=== PATIENT | female | born 1990 | race Caucasian/White ===

== ENCOUNTER 2020-06-19 14:32 | Outpatient (CLI) | payer OTHER, SELFPAY ==
--- NOTE | ~2020-06-19 | US_ITS ---
EXAMINATION: US OB /maternal detail DATE: 06/19/2020 16:01 INDICATION: survey TECHNIQUE: Multiple obstetric sonographic images performed. FINDINGS: No prior studies for comparison. There is a single living fetus in breech presentation. The placenta is anterior without placenta pre via. Amniotic fluid volume is normal. BENJIE measures 11.2 cm. cardiac activity and movement is noted with a heart rate of 135 beats per minute. The following anatomy was identified as normal: 4 chamber heart 3 vessel cord cord insertion kidneys urinary bladder stomach spine diaphragm ventricles cisterna magna cerebellum The following biometric data were obtained: BPD: 42mm corresponds to gestational age 18 weeks 5 days. Head circumference: 168 mm corresponds to gestational age 19 weeks 3 days. Abdominal circumference: 141 mm corresponds to gestational age 19 weeks 3 days. Femur length: 31 mm corresponds to gestational age 19 weeks 4 days. Head circumference to abdominal circumference ratio: 1.19 (normal range for expected gestational age is 1.09-1.26). Estimated weight: 295 grams +/- 44 grams using Hadlock method. IMPRESSION: 1: Single living intrauterine with an estimated gestational age of 19weeks 2days by current ultrasound measurements, with an EDC of 11/11/2020 in breech presentation. 2. Normal survey. Reviewed, dictated and finalized at location A. IO CLINICIAN IMPRESSION: 1: Single living intrauterine with an estimated gestational age of 19 weeks 2days by current ultrasound measurements, with an EDC of 11/11/2020 in carlos alberto ech presentation. 2. Normal survey.
== END 2020-06-19 14:33 | disposition home or self-care (01) ==
LOC: ANHIMG 14:41
PROVIDERS: PCP Obstetrics & Gynecology; Visit Provider Obstetrics & Gynecology
DX: Z36.89 Encounter for other specified antenatal screening (principal); Z3A.00 Weeks of gestation of pregnancy not specified
CPT/HCPCS: 76805